=== PATIENT | female | born 1990 | race Caucasian/White ===

== ENCOUNTER 2020-09-26 06:09 | Outpatient (CLI) | payer OTHER ==
[~2020-09-26] VITALS: Ht 157.5 cm; Wt 66.7 kg
== END 2020-09-26 09:35 | disposition home or self-care (01) ==
LOC: GENOP 06:09
PROVIDERS: Physician Assistant
DX: O98.319 Other infections with a predominantly sexual mode of transmission complicating pregnancy, unspecified trimester (principal); O99.513 Diseases of the respiratory system complicating pregnancy, third trimester; J45.909 Unspecified asthma, uncomplicated; Z3A.26 26 weeks gestation of pregnancy
CPT/HCPCS: 80307; 81001; G0463

== ENCOUNTER 2020-10-30 18:01 | Outpatient (CLI) | payer OTHER | END 2020-10-30 20:54 | disposition home or self-care (01) | LOC: GENOP 18:01 | PROVIDERS: Physician Assistant | DX: O99.891 Other specified diseases and conditions complicating pregnancy (principal); N89.8 Other specified noninflammatory disorders of vagina; R10.2 Pelvic and perineal pain; O99.353 Diseases of the nervous system complicating pregnancy, third trimester; G40.909 Epilepsy, unspecified, not intractable, without status epilepticus; O99.323 Drug use complicating pregnancy, third trimester; F15.10 Other stimulant abuse, uncomplicated; O99.333 Smoking (tobacco) complicating pregnancy, third trimester; F17.210 Nicotine dependence, cigarettes, uncomplicated; Z91.040 Latex allergy status; Z79.2 Long term (current) use of antibiotics; Z79.82 Long term (current) use of aspirin; Z88.5 Allergy status to narcotic agent; Z79.899 Other long term (current) drug therapy; Z3A.30 30 weeks gestation of pregnancy; Z20.822 Contact with and (suspected) exposure to COVID-19 | CPT/HCPCS: 0240U; 80307; 81001; 83518; G0463 ==

== ENCOUNTER 2021-03-11 19:44 | Emergency (ER) | payer OTHER ==
[2021-03-11] MEDS ORDERED: HYDROCODON-ACE1 EAC4 PO (20:21)
[2021-03-11] MEDS ORDERED: IBUPROFEN600 MG PO (20:32)
== END 2021-03-11 20:46 | disposition home or self-care (01) ==
LOC: ER1 19:44
DX: M25.512 Pain in left shoulder (principal); F17.290 Nicotine dependence, other tobacco product, uncomplicated; Z91.040 Latex allergy status; W10.9XXA Fall (on) (from) unspecified stairs and steps, initial encounter
CPT/HCPCS: 29105; 73030; 73060; 73090; 99283